=== PATIENT | female | born 1955 | race Caucasian/White ===

== ENCOUNTER 2016-12-16 07:18 | Emergency (ER) | payer OTHER ==
[2016-12-16 07:37] VITALS: BP 116/63
--- NOTE | 2016-12-16 08:04 | UC ---
Throat Pain/Nasal Rigo HPI - HPI Summary HPI Summary: C/O [address], PAIN WITH SWALLOWING, EARS FEELING PLUGGED AND ACHINESS. CO- WORKERS HAVE STREP. SHE DENIES ANY FEVER, N/V/D, COUGH OTR CONGESTION. - History of Current Complaint Chief Complaint: UCRespiratory Stated Complaint: SORE THROAT Time Seen by Provider: 12/16/16 07:55 Hx Obtained From: Patient Hx Last Menstrual Period: post menopausal Onset/Duration: Gradual Onset, Lasting Weeks, Still Present Severity: Moderate Pain Intensity: 7 Pain Scale Used: 0-10 Numeric Cough: None Associated Signs & Symptoms: Negative: Dysphagia, FB Sensation, Drooling, Wheezing, Hoarseness, Sinus Discomfort, Nasal Discharge, Fever, Vomiting, Rash - Allergies/Home Medications Allergies/Adverse Reactions: Allergies Allergy/AdvReac Type Severity Reaction Status Date / Time No Known Allergies Allergy Verified 10/13/14 13:20 Home Medications: Home Medications [id number]-[id number] [Nyquil Severe Cold/Flu 5-6.25-10-325 mg/15Ml] 1 liq PO 12/16/16 [History] PMH/Surg Hx/FS Hx/Imm Hx - Additional Past Medical History Additional PMH: INSOMNIA Endocrine History Of: Denies: Diabetes, Thyroid Disease Cardiovascular History Of: Denies: Cardiac Disorders, Hypertension, Myocardial Infarction Respiratory History Of: Denies: COPD, Asthma GI/ History Of: Denies: Ulcer - Surgical History Surgical History: Yes Surgery Procedure, Year, and Place: TONSILLECTOMY. tubal ligation - Family History Known Family History: Negative: Hypertension, Diabetes - Social History Alcohol Use: None Substance Use Type: None Smoking Status (MU): Never Smoked Tobacco Review of Systems Constitutional: Negative ENT: Sore Throat, Ear Ache Respiratory: Negative Cardiovascular: Negative Gastrointestinal: Negative Musculoskeletal: Myalgia All Other Systems Reviewed And Are Negative: Yes Physical Exam Triage Information Reviewed: Yes Appearance: Well-Appearing, No Pain Distress, Well-Nourished Vital Signs: Initial Vital Signs Temp 98.5 F 12/16/16 07:30 Pulse 59 12/16/16 07:30 Resp 16 12/16/16 07:30 BP 116/63 12/16/16 07:30 Pulse Ox 97 12/16/16 07:30 Vital Signs Reviewed: Yes Eyes: Positive: Conjunctiva Clear ENT: Positive: Hearing grossly normal, Pharynx normal, TMs normal, Other: - NO TONSILS. Negative: Trismus, Muffled/hoarse voice Neck: Positive: Supple, Nontender, No Lymphadenopathy Respiratory Exam: Normal Cardiovascular Exam: Normal Abdomen Description: Positive: Soft Musculoskeletal: Positive: No Edema Neurological: Positive: Alert Psychological: Positive: Age Appropriate Behavior Skin: Negative: rashes Throat Pain/Nasal Course/Dx - Differential Dx/Diagnosis Provider Diagnoses: ACUTE PHARYNGITIS Discharge - Discharge Plan Condition: Stable Disposition: HOME Prescriptions: predniSONE TAB* [Deltasone TAB*] 40 mg PO DAILY #10 tab Patient Education Materials: Pharyngitis (ED) Referrals: Vijaya Sabillon MD [Primary Care Provider] - If Needed Additional Instructions: NO SIGN OF STREP ON EXAM TODAY. TRY PREDNISONE TO DECREASE INFLAMMATION. USE OTC IBUPROFEN FOR DISCOMFORT. REST, HYDRATE AND SEEK FOLLOW-UP WITH YOUR PCP IF YOU ARE NOT IMPROVING OVER THE NEXT WEEK OR SO.
== END 2016-12-16 08:19 | disposition home or self-care (01) ==
LOC: UCEAST 07:18
DX: J02.9 Acute pharyngitis, unspecified (principal); R09.81 Nasal congestion
CPT/HCPCS: 99212; G0463

== ENCOUNTER 2017-03-13 07:03 | Day surgery (SDC) | payer OTHER ==
--- NOTE | 2017-03-02 16:26 | HP ---
CC: Dr. Co[facility]; Dr. Vijaya Sabillon* PREOPERATIVE HISTORY AND PHYSICAL: DATE OF ADMISSION: This patient is scheduled for same-day surgery admission by Dr. Cooley on 03/13/17. DATE OF PREOPERATIVE HISTORY AND PHYSICAL EXAMINATION: 03/02/17. ATTENDING SURGEON: Dr. yNdia Cooley* (dictated by Vianney Pruitt NP). CHIEF COMPLAINT: Left breast cancer. HISTORY OF PRESENT ILLNESS: The patient is a 61-year-old female recently evaluated by Dr. Cooley for a new finding of left breast cancer. The patient found the lump approximately 4 weeks ago and was doing self-breast exam because she had just learned that her [id number] was diagnosed with breast cancer. She denies any changes in the left breast lump other than an achiness since she found it. She sought medical attention and was sent for mammogram and ultrasound, which identified a suspicious mass in the left breast outer inferior aspect. Dr. Cooley sent her for fine needle aspiration, which revealed ductal adenocarcinoma, ER positive, VA and HER-2 negative. Age of menarche was 18, age of first delivery 28, and menopause around age 51. She was on control pills for approximately 5 years around age 32. She has a paternal aunt, who had breast cancer diagnosed when she was elderly. No other family history of breast cancer. No family history of ovarian cancer. The patient did not breastfeed; she has never had radiation to the chest. Dr. Cooley has examined the patient and reviewed the findings with her and has commended left breast lumpectomy and sentinel lymph node biopsy as a same-day surgery procedure. Dr. Cooley discussed the nature of the surgical procedure, the rationale for the procedure, the relevant risks and benefits, and today I have reviewed the typical postoperative care and recovery. The patient also has an upcoming appointment with Dr. María Aviles from Oncology. The patient has had a chance to ask questions and stated that she understands the information and is satisfied with the answers given to her questions. She will sign surgical consent on the day of surgery. PAST MEDICAL HISTORY: Significant for anxiety and depression. PAST SURGICAL HISTORY: Laparoscopy for ovarian cyst many years ago; tonsillectomy many years ago. OB HISTORY: 3, para 2, abortions 1. She is up-to-date with breast exam , mammogram, pelvic, and Pap smear, and has been postmenopausal for over 10 years. MEDICATIONS: 1. Buspirone 10 mg 1 tablet daily in the morning and 2 tablets daily at bedtime. 2. Ambien 10 mg p.o. at bedtime as needed. 3. Xanax 0.25 mg 1 tablet up to 3 times daily as needed for anxiety. ALLERGIES: No known drug allergies. No latex or food allergies. FAMILY HISTORY: Paternal aunt diagnosed with breast cancer when she was elderly. No other family history of breast or ovarian cancer. No known bleeding tendencies, clotting disorders, or anesthesia complications in the family. SOCIAL HISTORY: She is and has never been a smoker. She denies the use of alcohol or other substances. REVIEW OF SYSTEMS: Constitutional: No recent illnesses. No change in weight. Cardiovascular: No chest pain, pressure, palpitations, or shortness of breath. Respiratory: No chronic cough. Gastrointestinal: No conditions or complaints. Genitourinary: No dysuria or history of kidney stones. Musculoskeletal: No complaints. Psychological: History of anxiety and depression. Hematologic: No bleeding tendencies. She has never received blood transfusion. She denies any history of deep vein thrombosis or pulmonary embolism and she denies any previous anesthesia complications. PHYSICAL EXAMINATION GENERAL SURVEY: The patient is a 61-year-old female, well-developed, well- nourished, in no acute distress. VITAL SIGNS: Height 63 inches, weight 119 pounds, body mass index 21. Blood pressure 116/78, pulse 74 and regular, respiratory rate 16, temperature 99 tympanic. HEENT: Benign. NECK: Supple. No cervical lymphadenopathy. No thyromegaly. No supraclavicular lymphadenopathy. BACK: No CVA tenderness. LUNGS: Breath sounds bilaterally clear and equal. BREAST EXAM: Performed with the patient in supine position and sitting position. Breasts are symmetrical. Left breast with ecchymosis in the inferior outer aspect consistent with the biopsy site, no infection, palpation reveals a mass at the site that is firm and round and semi-mobile located at the 4 o' clock position 3 cm from the nipple. No masses noted in the right breast. Nipples are everted. No nipple discharge. On inspection of both axillae, there is no palpable axillary lymphadenopathy. HEART: Regular rate and rhythm. No murmurs or rubs appreciated. ABDOMEN: Soft and nondistended, nontender throughout. PELVIC: Deferred. RECTAL: Deferred. EXTREMITIES: Warm without edema or skin ulcerations. NEUROLOGIC: Alert and oriented x3. Steady gait. SKIN: Warm, dry, intact. IMPRESSION: Left breast cancer. PLAN: Same-day surgery admission to Dr. Cooley's service on 03/13/17, for left breast lumpectomy and sentinel lymph node biopsy. IVANNEY PRUITT, STRATEGIC INSIGHTS LEAD [id number]/CPS #: [id number] [facility] MEDICAL CENTERLeoncio
[~2017-03-13 07:03] MED LIST: Buffered Lidocaine 0.9% SYRIN* 5 ML/SYR SYRINGE INTRADERM ONE; Famotidine IV* 10 MG/ML 2 ML (20 mg) IV ONE
[2017-03-13] MEDS ORDERED: Buffered Lidocaine 0.9% SYRIN* 5 ML/SYR SYRINGE ONE (07:15)
[2017-03-13] MEDS ORDERED: Lidocaine 2.5%/Prilocain 2.5%* 5 GM TUBE ONE (07:15)
[2017-03-13] MEDS ORDERED: Famotidine IV* 10 MG/ML 2 ML (20 mg) ONE (08:30)
[2017-03-13] MEDS ORDERED: KETAMINE HCL* 50 MG/ML 10 ML VIAL ONE (09:17)
[2017-03-13] MEDS ORDERED: Midazolam* 1 MG/ML 5 ML VIAL (5 MG) ONE (09:17)
[2017-03-13] MEDS ORDERED: fentaNYL* 50 MCG/ML 2 ML VIAL (100 MCG VIAL) ONE ×2 (09:17→11:11)
[2017-03-13] MEDS ORDERED: oxyCODONE/Acetamin 5/325 MG* TAB PO PRN ×2 (09:43→12:32)
[2017-03-13] MEDS ORDERED: Morphine INJ* 2 MG/ML 1 ML SYRINGE IV PRN (09:43)
[2017-03-13] MEDS ORDERED: fentaNYL* 50 MCG/ML 2 ML VIAL (100 MCG VIAL) IV PRN (09:43)
[2017-03-13] MEDS ORDERED: PROCHLORPERAZINE INJ 5 MG/ML 2 ML VIAL IV PRN (09:43)
[2017-03-13] MEDS ORDERED: Scopolamine 1.5 mg* PATCH TRANSDERM PRN (09:43)
--- NOTE | 2017-03-13 10:06 | RAD ---
HISTORY: Breast cancer. Lymphoscintigraphy of the breast for the purposes of sentinel node identification. COMPARISONS: Ultrasound dated February 09, 2017 TECHNIQUE: Previous imaging was reviewed. The procedure was explained to the patient who indicated that she understood. Written and verbal informed consent was obtained, with an opportunity to ask and answer questions. The breast was marked. A timeout was performed. The patient was prepped and draped in the usual sterile fashion. Technetium 99m sulfur colloid was administered in a subdermal fashion in 4 divided aliquots in a 180 degree arc along the areolar margin of the left breast, centered on the position of the primary breast lesion. Cine and planar imaging was performed. The first appearing axillary node was identified with the overlying skin marked. DOSE: Technetium 99m sulfur colloid, 0.312 millicuries, injected at 9:34 AM on March 13, 2017 FINDINGS: Uptake is noted within a left axillary lymph node. The site of uptake is marked on the overlying skin. OTHER: None IMPRESSION: TECHNICALLY SUCCESSFUL, UNCOMPLICATED, LYMPHOSCINTIGRAPHY OF THE LEFT BREAST FOR THE PURPOSES OF SENTINEL NODE LOCALIZATION.
[2017-03-13] MEDS ORDERED: Lidocaine 1% INJ* 10 MG/ML 30 ML SDV ONE (10:18)
[2017-03-13] MEDS ORDERED: Bupivacaine 0.5% W/EPI SDV* 10 ML VIAL INJ ONE (10:18)
[2017-03-13] MEDS ORDERED: ceFAZolin 2 GM PREMIX(*) 2 GM/50 ML BAG IVPB ONE (10:31)
--- NOTE | 2017-03-13 11:47 | RAD ---
HISTORY: Specimen radiograph of the left breast after lumpectomy COMPARISONS: Mammogram dated February 09, 2017, ultrasound dated February 09, 2017 VIEWS: 2 specimen radiographs are submitted at approximately 11:27 AM on March 05, 2017 FINDINGS: 1 specimen radiograph the straight a nodular density that may correspond to the nodule noted on sonography. This was not well visualized on previous mammography. The second specimen radiograph demonstrates microcalcifications IMPRESSION: SPECIMEN RADIOGRAPHS DESCRIBED ABOVE. FINDINGS WERE DISCUSSED WITH DR. JIMENEZ AT APPROXIMATELY 11 30 A.M. ON MARCH 13, 2017
[2017-03-13] MEDS ORDERED: Propofol* 10 MG/ML 20 ML BTL IV PUSH ONE (12:21)
[2017-03-13] MEDS ORDERED: Dexamethasone IV* 4 MG/ML 1 ML (4 MG) ONE (12:21)
[2017-03-13] MEDS ORDERED: Lidocaine 2% PF * 5 ML VIAL ONE (12:21)
[2017-03-13] MEDS ORDERED: Ketorolac INJ* 30 MG/ML 1 ML VIAL ONE (12:21)
[2017-03-13] MEDS ORDERED: PROCHLORPERAZINE INJ 5 MG/ML 2 ML VIAL ONE (12:21)
[2017-03-13] MEDS ORDERED: Ondansetron INJ* 2 MG/ML VIAL ONE (12:21)
--- NOTE | 2017-03-13 12:42 | PN ---
Progress Note - Progress Note Date of Service: 03/13/17 Note: Brief Operative Note: Pre-op: Left breast cancer Post-op: The same Procedure: Left breast lumpectomy with sentinal lymph node biopsy Surgeon: Dr. Cooley It Project Manager: Steven Cintron EBL: Minimal Fluids: LR 1000 Drains: None Catheters: None Specimen: Left breast mass, Left breast additional mass, sentinal lymph nodw # 1 and #2 Findings: See dictated op note
[2017-03-13 12:59] VITALS: BP 128/76
--- NOTE | 2017-03-14 11:59 | OP ---
CC: Dr. Vijaya Sabillon * DATE OF OPERATION: 03/13/17 - [facility] DATE OF : 59 SURGEON: Nydia Cooley MD MANAGER ELECTRONIC: CANDY Stanley ANESTHESIOLOGIST: Niranjan Culp MD ANESTHESIA: MAC PRE-OP DIAGNOSIS: Left breast cancer. POST-OP DIAGNOSIS: Left breast cancer. OPERATIVE PROCEDURE: Left breast lumpectomy and sentinel node biopsy. INDICATIONS: Ms. Carbajal is a 61-year-old woman recently diagnosed with breast cancer, who was prepared for surgery and the lump was palpable but she preferred sentinel node biopsy, so she underwent sentinel node localization on the morning of the surgery. DESCRIPTION OF PROCEDURE: She was then brought to the operating room, placed on the OR table in supine position and given IV sedation. The left breast and axilla were prepped and draped in the usual sterile fashion. Attention was turned to the breast first. Here, palpation revealed a thickened area in the upper outer quadrant and more dense area inferiorly. The decision was made to make the incision towards the upper outer quadrant and excise the thickened area as well as the more dense area inferiorly. So an incision was made and subcutaneous tissue was divided with electrocautery and to completely excise the thickened area superiorly, this was marked in the usual fashion and handed off as a specimen. It was noted that at the inferior aspect of this was very dense area, so additional tissue was taken from inferiorly as planned. This contained a firm nodule and was marked in the usual fashion and handed off as a second specimen identified this being adjacent to the first and inferior to it. These were sent to Radiology where it was ascertained that the superior specimen contained microcalcifications and the inferior specimen contained a nodule. Meanwhile, hemostasis was assured with electrocautery. Once this was adequate, clips were placed in the cavity to emily its confines and then closure was accomplished after instilling some additional local anesthetic. Closure was done with 3-0 Polysorb in the subcutaneous layer and the skin was closed with 4-0 Surgipro in a subcuticular fashion. Attention was then turned to the axilla where the location of the sentinel node was identified. After infiltrating with local anesthetic, a curvilinear incision was made and again the navigator was used to locate the sentinel node. The first structure that came into the field was a small node in the inferior axilla. This was grasped and dissected from surrounding tissue using sharp and blunt dissection. Clips were used to control the vessels that approached this gland. It was noted to have in situ counts of 700 and ex vivo counts of 500, so search was made for a second sentinel node. This was found more anteriorly and again noted to be a small node that was dissected free from surrounding tissue using blunt and sharp dissection and clips to control vessels. Its in situ counts were 4400 and ex vivo counts 4200. The axillary bed counts were 179. The wound was irrigated with saline and hemostasis was assured and then closure was accomplished with 3-0 Polysorb in a subcutaneous layer and the skin was closed with 4-0 Surgipro in a subcuticular fashion. Steri-Strips and a dry sterile dressing were applied to both incisions. All sponge and instrument counts were correct. The patient tolerated the procedure well and was transferred to Recovery in a stable condition. [id number]/[facility] #: [id number] MTDD
[2017-03-16] MEDS ORDERED: Scopolomine PATCH Remove* 1 NOTE MISC PATCH OFF ONE (09:44)
== END 2017-03-13 13:33 | disposition home or self-care (01) ==
LOC: OR 07:03
PROVIDERS: ATTEND Surgery
DX: C50.412 Malignant neoplasm of upper-outer quadrant of left female breast (principal); F41.8 Other specified anxiety disorders
CPT/HCPCS: 78195; 88271; 88307; 88341; 88342; 88360; A9270-GY; A9541; G0206-LT; J0690; J0780; J1100; J1885; J2001; J2250; J2405; J2704; J3010

== ENCOUNTER 2017-07-25 16:26 | Emergency (ER) | payer OTHER ==
[2017-07-25] MEDS ORDERED: Aspirin Low Dose CHEW TAB* 81 MG PO ONE (16:43)
[2017-07-25 17:08] LABS: Hematocrit 36 % (35-47); Hemoglobin 12.3 g/dl (12.0-16.0); Mean Corpuscular HGB Conc 34 g/dl (31-36); Mean Corpuscular Hemoglobin 29 pg (27-31); Mean Corpuscular Volume 87 fL (80-97); Mean Platelet Volume 8 um3 (7.4-10.4); Red Cell Distribution Width 16 % (10.5-15); White Blood Count 10.3 10^3/ul (3.5-10.8)
[2017-07-25 17:24] LABS: Albumin 3.9 g/dL (3.2-5.2); Calcium 9.2 mg/dL (8.6-10.3); EGFR African American 131.6 (>60); EGFR Non-African American 102.3 (>60); Globulin 2.8 g/dL (2-4); Potassium 3.9 mmol/L (3.5-5.0); Total Bilirubin 0.4 mg/dL (0.2-1.0); Total Protein 6.7 g/dL (6.4-8.9)
[2017-07-25 17:27] LABS: Troponin I 0.01 ng/mL (<0.04)
--- NOTE | 2017-07-25 17:42 | RAD ---
Indication: LEFT breast carcinoma; currently receiving oncology therapy. Shortness of breath. LEFT side chest pain radiating to the back. Comparison: July 02, [address] Technique: Upright AP 1654 hours Report: Mild prominence of the interstitial markings. No focal pulmonary lesion, pleural effusion, pneumothorax. Upper normal heart size. Unremarkable central pulmonary vasculature and mediastinal contours. LEFT breast and axillary surgical clips. No LEFT rib fracture evident. Incidental note of calcific tendinopathy of the LEFT rotator cuff. IMPRESSION: No evidence for acute intrathoracic disease.
[2017-07-25 17:59] LABS: TSH (Thyroid Stimulating Horm) 0.08 mcIU/mL (0.34-5.60)
[2017-07-25 18:00] LABS: Urine Bilirubin Negative (Negative); Urine Glucose Negative (Negative); Urine Nitrite Negative (Negative)
[2017-07-25] MEDS ORDERED: Iohexol 350* (CONTRAST) 500 ML MDV IV ONE (18:30)
--- NOTE | 2017-07-25 19:33 | RAD ---
INDICATION: Shortness of breath and chest pain. LEFT chest wall pain increases with inspiration. COMPARISON: July 02, [address] thorax. TECHNIQUE: Multidetector CT images were obtained from the lung apices to the upper abdomen with 61 mL Omnipaque 350 IV contrast. Pulmonary angiogram protocol. Multiplanar reformation including with maximum intensity projection. REPORT: Mild LEFT basilar atelectasis with volume loss resulting from cardiomegaly. No suspicious focal pulmonary lesions. Negative for pneumothorax. Surgical clips at the LEFT axilla. Negative for thoracic lymphadenopathy. Cardiomegaly without significant change. Negative for pericardial effusion. Unremarkable thoracic aorta. No filling defects are identified from the main to the subsegmental pulmonary arteries to indicate presence of a pulmonary embolism. Unremarkable Limited images through the upper abdomen. Partially visualized LEFT breast seroma or hematoma measuring up to 6.5 cm AP by 9.1 cm transverse is unchanged. Negative for rib or other thoracic fracture. 0.7 cm sclerotic lesion at the RIGHT para midline T3 vertebral body is unchanged compared with the July 02, 2017 exam. No additional suspicious focal thoracic osseous lesions evident. IMPRESSION: 1. Mild LEFT basilar atelectasis with cardiomegaly activity to volume loss. 2. No evidence for pulmonary embolism. 3. Unchanged probable large postoperative seroma or hematoma at the LEFT breast. 4. Solitary 0.7 cm indeterminate sclerotic lesion at the T3 vertebral body concerning for a potential metastasis. Consider follow-up bone scan for further assessment.
[2017-07-25] MEDS ORDERED: Ondansetron INJ* 2 MG/ML VIAL IV ONE (22:06)
[2017-07-25] MEDS ORDERED: fentaNYL* 50 MCG/ML 2 ML VIAL (100 MCG VIAL) IV SLOW PU ONE (22:06)
[2017-07-25] MEDS ORDERED: oxyCODONE/Acetamin 5/325 MG* TAB PO PRN (23:00)
[2017-07-25] MEDS ORDERED: oxyCODONE/Acetamin 5/325 MG* TAB ONE (23:45)
[2017-07-26 00:03] VITALS: BP 110/59
--- NOTE | 2017-07-26 16:43 | ED ---
Bruna Clarke Alfonso, scribed for Jimmy Trotter MD on 07/25/17 at 1702 . HPI Chest Pain - HPI Summary HPI Summary: This patient is a 61 year old F presenting to [facility] accompanied by with a chief complaint of pressured mid sternal CP since 1400 today. The CP radiates to her back. The CP began while baking cookies with her grandchildren. She has had a similar pain for a few minutes in the past, but not in a long time and this long. The patient rates the pain 7/10 in severity. Symptoms aggravated by deep breaths. Symptoms alleviated by nothing. Patient reports dyspnea. Patient denies N/V, diaphoresis, dizziness, and near syncope. - History of Current Complaint Chief Complaint: EDChestPainROMI Time Seen by Provider: 07/25/17 16:43 Hx Obtained From: Patient Hx Last Menstrual Period: post menopausal Onset/Duration: Started Hours Ago, Still Present Timing: Constant Current Severity: Moderate Pain Intensity: 7 Pain Scale Used: 0-10 Numeric Chest Pain Location: Mid Sternal Character: Pressure/Squeezing Aggravating Factor(s): Deep Breaths Alleviating Factor(s): Nothing Associated Signs and Symptoms: Positive: Other: - dyspnea. Patient denies N/V, diaphoresis, dizziness, and near syncope. - Allergy/Home Medications Allergies/Adverse Reactions: Allergies Allergy/AdvReac Type Severity Reaction Status Date / Time No Known Allergies Allergy Verified 03/13/17 07:58 PMH/Surg Hx/FS Hx/Imm Hx Endocrine/Hematology History: Denies: Hx Diabetes, Hx Thyroid Disease Cardiovascular History: Reports: Hx Angina Denies: Hx Coronary Artery Disease, Hx Hypercholesterolemia, Hx Hypertension , Hx Myocardial Infarction, Hx Valvular Heart Disease Respiratory History: Denies: Hx Asthma, Hx Chronic Obstructive Pulmonary Disease (COPD) GI History: Denies: Hx Ulcer Musculoskeletal History: Denies: Hx Osteoporosis Sensory History: Denies: Hx Contacts or Glasses, Hx Hearing Aid Opthamlomology History: Denies: Hx Contacts or Glasses Psychiatric History: Reports: Hx Anxiety - recently, Hx Depression - in past - Cancer History Cancer Type, Location and Year: Breast cancer Hx Chemotherapy: No Hx Radiation Therapy: Yes - Surgical History Surgery Procedure, Year, and Place: TONSILLECTOMY. tubal ligation. laparoscopic surgery for cyst on ovaries 30 years ago. Lumpectomy Hx Anesthesia Reactions: No Infectious Disease History: No Infectious Disease History: Denies: Hx Clostridium Difficile, Hx Hepatitis, Hx Human Immunodeficiency Virus (HIV), Hx of Known/Suspected MRSA, Hx Shingles, Hx Tuberculosis, History Other Infectious Disease, Traveled Outside the [place] in Last 30 Days - Family History Known Family History: Negative: Hypertension, Diabetes - Social History Alcohol Use: Occasionally Hx Substance Use: No Substance Use Type: Reports: None Hx Tobacco Use: No Smoking Status (MU): Never Smoked Tobacco Review of Systems Negative: Skin Diaphoresis Positive: Chest Pain Positive: Other - Dyspnea Negative: Vomiting, Nausea Neurological: Other - Negative dizziness and near syncope All Other Systems Reviewed And Are Negative: Yes Physical Exam - Summary Physical Exam Summary: VITAL SIGNS: Reviewed. GENERAL: Patient is a well-developed and nourished female who is lying comfortable in the stretcher. Patient is not in any acute respiratory distress. HEAD AND FACE: No signs of trauma. No ecchymosis, hematomas or skull depressions. No sinus tenderness. EYES: PERRLA, EOMI x 2, No injected conjunctiva, no nystagmus. EARS: Hearing grossly intact. Ear canals and tympanic membranes are within normal limits. MOUTH: Oropharynx within normal limits. NECK: Supple, trachea is midline, no adenopathy, no JVD, no carotid bruit, no c- spine tenderness, neck with full ROM. CHEST: Symmetric, no tenderness at palpation LUNGS: Clear to auscultation bilaterally. No wheezing or crackles. CVS: Regular rate and rhythm, S1 and S2 present, no murmurs or gallops appreciated. ABDOMEN: Soft, non-tender. No signs of distention. No rebound no guarding, and no masses palpated. Bowel sounds are normal. EXTREMITIES: FROM in all major joints, no edema, no cyanosis or clubbing. NEURO: Alert and oriented x 3. No acute neurological deficits. Speech is normal and follows commands. SKIN: Dry and warm Triage Information Reviewed: Yes Vital Signs On Initial Exam: Initial Vitals Temp Pulse Resp BP Pulse Ox 98.4 F 88 20 162/80 98 07/25/17 16:30 07/25/17 16:30 07/25/17 16:30 07/25/17 16:30 07/25/17 16:30 Vital Signs Reviewed: Yes - Matt Coma Scale Coma Scale Total: 15 Diagnostics - Vital Signs Vital Signs Temp Pulse Resp BP Pulse Ox 07/25/17 16:52 79 20 99 07/25/17 16:30 98.4 F 88 20 162/80 98 - Laboratory Result Diagrams: 07/25/17 16:49 07/25/17 16:49 Lab Statement: Any lab studies that have been ordered have been reviewed, and results considered in the medical decision making process. - Radiology CXR Radiology Interpretation Completed By: Radiologist - No evidence for acute intrathoracic disease. ED physician has reviewed this radiology report and agrees. - CT CTA Chest CT Interpretation Completed By: Radiologist - Pending official interpretation from radiologist. See Artspace. - EKG 1646 Cardiac Rate: NL EKG Rhythm: Sinus Rhythm - 76 BPM EKG Interpretation: ST depressions in V4-V6. Q-waves in III and aVF. Chest Pain Course/Dx - Course Assessment/Plan: This patient is a 61 year old F presenting to [facility] accompanied by with a chief complaint of pressured mid sternal CP since 1400 today. The CP radiates to her back. The CP began while baking cookies with her grandchildren. She has had a similar pain for a few minutes in the past, but not in a long time and this long. The patient rates the pain 7/10 in severity. Symptoms aggravated by deep breaths. Symptoms alleviated by nothing. Patient reports dyspnea. Patient denies N/V, diaphoresis, dizziness, and near syncope. An EKG reveals Sinus rhythm at [address] depressions in V4-V6. Q- waves in III and aVF. CXR reveals, per radiologist, No evidence for acute intrathoracic disease. ED physician has reviewed this radiology report and agrees. Test results with no significant abnormalities except for increased D- Dimer. D-Dimer was preformed since patient has history of cancer. CTA Chest Pending official interpretation from radiologist. See Artspace. This patient will be signed out at shift change to Dr. Howard to follow CTA and disposition of patient. The patient is hemodynamically stable, alert and oriented x3. - Diagnoses Provider Diagnoses: Chest pain Discharge - Discharge Plan Condition: Stable Disposition: OTHER Discharge Disposition Comment: Patient is signed out to Dr. Howard, pending disposition, awaiting CTA Referrals: Vijaya Sabillon MD [Primary Care Provider] - The documentation as recorded by the scribBruna chacko Alfonso accurately reflects the service I personally performed and the decisions made by me, Jimmy Trotter MD.
--- NOTE | 2017-07-28 05:29 | ED ---
Todd Clarke Thomas, scribed for Cely Howard MD on 07/25/17 at 2016 . Progress - Progress Note Progress Note: The patient is a sign out from the previous ED attening pending CTA Chest, awaiting disposition. The patient describes the pain as a substernal chest pain going through her back. It is worse with movement and deep breaths. CTA Chest. Interpreted by radiologist. Impression: 1. Mild LEFT basilar atelectasis with cardiomegaly activity to volume loss. 2. No evidence for pulmonary embolism. 3. Unchanged probable large postoperative seroma or hematoma at the LEFT breast. 4. Solitary 0.7 cm indeterminate sclerotic lesion at the T3 vertebral body concerning for a potential metastasis. Consider follow- up bone scan for further assessment. Dr. Howard has reviewed this report. I did review with the patient and her the CT scan results, which includes a collection behind the left breast 0.7 cm at T3. The patient and her were advised to follow up with oncology and breast surgery next week to discuss the problem with him. The pain is most likely musculoskeletal. The patient will be discharged home with Percocet for the pain and also to follow up with her primary medical doctor. Course/Dx - Diagnoses Provider Diagnoses: Atypical chest pain, Chest wall pain The documentation as recorded by the Todd edwards Thomas accurately reflects the service I personally performed and the decisions made by Anita huff Abdul, MD.
== END 2017-07-26 00:01 ==
LOC: ED 16:26
DX: R07.89 Other chest pain (principal); R06.00 Dyspnea, unspecified; Z86.79 Personal history of other diseases of the circulatory system
CPT/HCPCS: 36415; 71010; 71275; 80053; 81003; 82550; 82553; 83880; 84443; 84484; 85025; 85379; 85730; 93005; 96374; 96375; 99285; A9270-GY; J2405; J3010; Q9967

== ENCOUNTER 2017-08-19 15:03 | Inpatient (IN) | payer OTHER ==
[2017-08-19] MEDS ORDERED: NS 0.9% 1000 ML* 1,000 ML IV ONE (15:16)
[2017-08-19] MEDS ORDERED: ALPRAZolam TAB* 0.25 MG PO PRN (15:29)
[2017-08-19] MEDS ORDERED: Piperacillin/Tazobac ADVAN(*) 3.375 GM in NS 0.9% 100 ML* 100 ML IVPB ONE (16:00)
[2017-08-19] MEDS ORDERED: Zosyn per Pharmacy* NOTE FOLLOW UP SCH (16:00)
[2017-08-19] MEDS: NS 0.9% 1000 ML* 1,000 ML IV SCH (16:42)
[2017-08-19 17:21] LABS: INR 1.19 (0.77-1.02)
[2017-08-19] MEDS: busPIRone TAB* 10 MG PO SCH (23:10)
[2017-08-19] MEDS: Zolpidem TAB* 10 MG PO SCH (23:10)
[2017-08-19] MEDS: ZOSYN 3.375 GM Q8H per EXTENDED INFUSION IVPB SCH ×2 (23:11)
[2017-08-19] MEDS ORDERED: Acetaminophen TAB* 325 MG PO PRN (23:58)
[2017-08-20] MEDS: ZOSYN 3.375 GM Q8H per EXTENDED INFUSION IVPB SCH ×6 (05:36→21:09)
[2017-08-20 05:51] LABS: ABS Basophils 0 10^3/ul (0-0.2); ABS Eosinophils 0 10^3/ul (0-0.6); ABS Lymphocytes 0.9 10^3/ul (1.0-4.8); ABS Monocytes 0.8 10^3/ul (0-0.8); ABS Neutrophils 7.3 10^3/ul (1.5-7.7); ABS Nucleated RBC 0 10^3/ul; Eosinophil % 0.4 % (0-6); Hematocrit 32 % (35-47); Hemoglobin 10.5 g/dl (12.0-16.0); Lymphocyte % 10.1 % (25-47); Mean Corpuscular HGB Conc 33 g/dl (31-36); Mean Corpuscular Hemoglobin 28 pg (27-31); Mean Corpuscular Volume 85 fL (80-97); Mean Platelet Volume 8 um3 (7.4-10.4); Nucleated Red Blood Cells % 0; Platelet Count 254 10^3/ul (150-450); Red Blood Count 3.71 10^6/ul (4.0-5.4); Red Cell Distribution Width 15 % (10.5-15)
[2017-08-20 06:03] LABS: EGFR Non-African American 146.4 (>60)
[2017-08-20] MEDS: Heparin VIAL(*) 5000 UNITS/ML VIAL (FIVE THOUSAND) SUBCUT SCH ×2 (07:04→18:04)
[2017-08-20] MEDS: busPIRone TAB* 10 MG PO SCH ×3 (08:01→21:09)
--- NOTE | 2017-08-20 08:10 | PN ---
Progress Note - Progress Note Date of Service: 08/20/17 SOAP: Subjective: feels a little better with hydration this am. still very weak and does not really want to get out of bed. anxious about this am. coughing with talking or deep breaths. +night sweats. +anorexia and nausea but no vomiting. Objective: Vital Signs Temp Pulse Resp BP Pulse Ox 98.3 F 82 18 94/60 97 08/20/17 03:25 08/20/17 03:25 08/20/17 03:25 08/20/17 03:25 08/20/17 03:25 current HR ~110 tired appearing perr eomi op moist dec bs 1/4 way up on left tachy soft nt +Bs no le edema A+Ox 3, nonfocal, neck supple, no photophobia Laboratory Results - last 24 hr 08/19/17 08/19/17 08/19/17 17:05 17:05 17:05 WBC RBC Hgb Hct MCV MCH MCHC RDW Plt Count MPV Neut % (Auto) Lymph % (Auto) [place] % (Auto) Eos % (Auto) Baso % (Auto) Absolute Neuts (auto) Absolute Lymphs (auto) Absolute Monos (auto) Absolute Eos (auto) Absolute Basos (auto) Absolute Nucleated RBC Nucleated RBC % ESR 109 H INR (Anticoag Therapy) 1.19 H Sodium Potassium Chloride Carbon Dioxide Anion Gap BUN Creatinine Est GFR ( Amer) Est GFR (Non-Af Amer) BUN/Creatinine Ratio Glucose Calcium Total Bilirubin AST ALT Alkaline Phosphatase C-Reactive Protein 218.74 H Total Protein Albumin Globulin Albumin/Globulin Ratio 08/20/17 08/20/17 05:29 05:29 WBC 9.0 RBC 3.71 L Hgb 10.5 L Hct 32 L MCV 85 MCH 28 MCHC 33 RDW 15 Plt Count 254 MPV 8 Neut % (Auto) 80.5 Lymph % (Auto) 10.1 L [place] % (Auto) 8.7 Eos % (Auto) 0.4 Baso % (Auto) 0.3 Absolute Neuts (auto) 7.3 Absolute Lymphs (auto) 0.9 L Absolute Monos (auto) 0.8 Absolute Eos (auto) 0 Absolute Basos (auto) 0 Absolute Nucleated RBC 0 Nucleated RBC % 0 ESR INR (Anticoag Therapy) Sodium 135 Potassium 3.6 Chloride 103 Carbon Dioxide 25 Anion Gap 7 BUN 11 Creatinine 0.44 L Est GFR ( Amer) 188.2 Est GFR (Non-Af Amer) 146.4 BUN/Creatinine Ratio 25.0 H Glucose 111 H Calcium 9.2 Total Bilirubin 0.50 AST 14 ALT 13 Alkaline Phosphatase 94 C-Reactive Protein Total Protein 6.5 Albumin 3.1 L Globulin 3.4 Albumin/Globulin Ratio 0.9 L Acetaminophen (Tylenol Tab*) 650 mg PO Q4H PRN PRN Reason: PAIN/FEVER Last Admin: 08/20/17 00:16 Dose: 650 mg Alprazolam (Xanax Tab*) 0.25 mg PO Q6H PRN PRN Reason: ANXIETY Buspirone HCl (Buspar Tab*) 10 mg PO BID REPLACED BY [facility] Last Admin: 08/19/17 23:10 Dose: 10 mg Heparin Sodium (Porcine) (Heparin Vial(*)) 5,000 units SUBCUT Q8H REPLACED BY [facility] Last Admin: 08/20/17 07:04 Dose: Not Given Sodium Chloride (Ns 0.9% 1000 Ml*) 1,000 mls @ 75 mls/hr IV PER RATE REPLACED BY [facility] Last Admin: 08/19/17 16:42 Dose: 75 mls/hr Piperacillin Sod/Tazobactam (Sod 3.375 gm/ Sodium Chloride) 100 mls @ 25 mls/ hr IVPB Q8H REPLACED BY [facility] Last Admin: 08/20/17 05:36 Dose: 25 mls/hr Morphine Sulfate (Morphine Inj (Syringe)*) 2 mg IV Q4H PRN PRN Reason: PAIN Pharmacy Consult (Zosyn Per Pharmacy*) 1 note FOLLOW UP .ZOSYN PER PHARMACY REPLACED BY [facility] Zolpidem Tartrate (Ambien Tab*) 10 mg PO BEDTIME REPLACED BY [facility] Last Admin: 08/19/17 23:10 Dose: 10 mg Assessment: 61 yo F w triple positive BCA sp chemo and RT who has had c/o left sided pleuritic CP since 07/25. Tx w 10 dy course of abx 07/28-08/07 with some improvement, then steroids 08/09-08/15 with initial marked improvement. now with night sweats, low grade fevers, and worsening fatigue and cough with CT showing worsening pleural effusion. CRP and ESR markedly elevated. This is concerning for a parapneumonic effusion. Unfortunately surgery did not feel blind tap was safe and radiology could not do image guided thoracentesis last night in timely fashion, so having image guided thoracentesis this am. I did speak with Dr. Guerrero and we will continue current abx pending tap. Plan: -thoracentesis this am -cont zosyn -fu blood cultures -add on tsh, FT4, T3 -cont hydration -repeat ESR,Crp in am -cont tele, EKG changes likely related to stress of infection, improved now full code
[2017-08-20] MEDS ORDERED: fentaNYL* 50 MCG/ML 2 ML VIAL (100 MCG VIAL) ONE (08:18)
[2017-08-20] MEDS ORDERED: LORazepam TAB(*) 1 MG PO ONE (09:00)
--- NOTE | 2017-08-20 09:39 | RAD ---
Indication: Left pleural effusion. Inspiration and expiration views of the chest are reviewed. Comparison is made with previous exam dated July 25, 2017. Left pleural effusion is decreased since previous exam. No pneumothorax is noted. Patient is status post left thoracentesis. Right lung field is clear. IMPRESSION: No pneumothorax after left thoracentesis.
[2017-08-20] MEDS: NS 0.9% 1000 ML* 1,000 ML IV SCH (10:46)
--- NOTE | 2017-08-20 11:12 | RAD ---
Indication: Left pleural effusion. Using usual aseptic technique and lidocaine as local anesthetic left thoracentesis performed. 500 mL of serosanguineous fluid was aspirated. Patient tolerated procedure well. IMPRESSION: Status post left thoracentesis. Aspiration of 500 mL of serosanguineous fluid.
[2017-08-20] MEDS: Morphine INJ* 2 MG/ML 1 ML SYRINGE (TWO MG - NEW SYRINGE VERSION) IV PRN ×2 (11:40→18:04)
--- NOTE | 2017-08-20 15:38 | RAD ---
HISTORY: Decreased TSH COMPARISONS: March 30, 2006, March 05, 2006 TECHNIQUE: Multiple transverse and longitudinal ultrasound images were obtained of the thyroid using grayscale and color Doppler imaging. FINDINGS: Comparison to previous imaging is limited secondary to the age of study and differences in technique. ISTHMUS: The isthmus measures 0.3 cm in caliber. The isthmus is heterogeneous in echotexture. RIGHT: The right thyroid measures 5.2 x 1.8 x 2.5 cm, for a volume of 11.8 cc. In the right mid thyroid, there is a complex cystic and solid, partially calcified nodule measuring 2.8 x 1.7 x 2.1 cm. This has smooth contours, without internal vascularity or suspicious microcalcification. Accounting for differences in technique, there has been no significant change from the previous examination. Based on the sonographic pattern, this is considered a low suspicion nodule. In the right lower thyroid, there is a complex cystic and solid nodule measuring 1.4 x 1 x 1.2 cm. The margins are smooth. There is internal vascularity. Accounting for differences in technique, there has been no significant change from the previous examination. Based on the sonographic pattern, this is considered a low suspicion nodule. In the right upper thyroid, there is a homogeneously hypoechoic nodule measuring 0.5 x 0.3 x 0.4 cm. This has smooth contours. There is minimal peripheral vascularity. This is not clearly visualized on the previous examination. Based on the sonographic pattern, this is considered an intermediate suspicion nodule. LEFT: The left thyroid measures 4.9 x 1.3 x 1.3 cm, for a volume of 4.1 cc. In the left upper thyroid, there is a homogeneously isoechoic nodule measuring 0.4 x 0.3 x 0.4 cm. There is minimal peripheral vascularity. Accounting for differences in technique, there has been no significant change from the previous examination. Based on the sonographic pattern, this is considered a low suspicion nodule. In the left mid thyroid, there is a spongiform nodule measuring 1 x 0.5 x 0.8 cm. There is internal vascular. The margins are smooth. Accounting for differences in technique, there has been no significant change from the previous examination. Based on the sonographic pattern, this is considered a low suspicion nodule. In the left lower thyroid, there is a complex cystic and solid nodule measuring 1.4 x 0.8 x 0.7 cm. There is ringdown artifact suggestive of colloid. There is minimal internal vascularity. This is not clearly seen on the previous examination. Based on the sonographic pattern, this is considered a low suspicion nodule. LYMPH NODES: There is no local lymphadenopathy. VESSELS: The vessels are unremarkable. OTHER: None IMPRESSION: 1. MULTINODULAR GOITER. 2. THERE IS A 0.5 CM INTERMEDIATE SUSPICION NODULE OF THE RIGHT UPPER THYROID. THE [place] [employer] RECOMMENDS CONSIDERATION OF FINE-NEEDLE ASPIRATION OF INTERMEDIATE SUSPICION NODULES GREATER THAN OR EQUAL TO 1 CM IN SIZE. 3. THERE ARE BILATERAL LOW SUSPICION NODULES, MEASURING UP TO 2.8 CM ON THE RIGHT AND 1.4 CM ON THE LEFT. THE [employer] [employer] RECOMMENDS CONSIDERATION OF FINE-NEEDLE ASPIRATION OF LOW SUSPICION NODULES GREATER THAN OR EQUAL TO 1.5 CM IN SIZE. THE LARGEST ON THE RIGHT APPEARS TO CORRESPOND TO A PREVIOUSLY BIOPSIED NODULE. Based on the [place] [employer] 2015 guidelines, consider fine-needle aspiration thyroid nodule based on the following criteria: * High suspicion nodules: Recommend US-guided FNA if >= 1 cm. * Intermediate suspicion nodules: Recommend US-guided FNA if >= 1 cm. * Low suspicion nodules: Recommend US-guided a if >= 1.5 cm. * Very low suspicion nodules: Consider US-guided FNA if >= to 2 cm. Observation without fine-needle aspiration is also a reasonable option. * Benign nodules: No biopsy is recommended. Aspiration of the cyst may be considered for symptomatic or cosmetic drainage. Ultrasound-guided FNA is recommended for cervical lymph nodes that are sonographically suspicious for thyroid cancer. Alvarado et al (2016) "2015 [place] [employer] Management Guidelines for Adult Patients with Thyroid Nodules and Differentiated Thyroid Cancer", Thyroid, 26:1, 1-133.
[2017-08-20] MEDS: Zolpidem TAB* 10 MG PO SCH (21:09)
[2017-08-21] MEDS: Heparin VIAL(*) 5000 UNITS/ML VIAL (FIVE THOUSAND) SUBCUT SCH ×4 (00:03→22:25)
[2017-08-21] MEDS: NS 0.9% 1000 ML* 1,000 ML IV SCH ×2 (03:39→19:29)
[2017-08-21] MEDS: Morphine INJ* 2 MG/ML 1 ML SYRINGE (TWO MG - NEW SYRINGE VERSION) IV PRN ×2 (03:42→08:58)
[2017-08-21] MEDS: ZOSYN 3.375 GM Q8H per EXTENDED INFUSION IVPB SCH ×6 (06:09→22:31)
[2017-08-21 07:17] LABS: ABS Basophils 0 10^3/ul (0-0.2); ABS Eosinophils 0 10^3/ul (0-0.6); ABS Lymphocytes 0.7 10^3/ul (1.0-4.8); ABS Monocytes 0.5 10^3/ul (0-0.8); ABS Neutrophils 7.3 10^3/ul (1.5-7.7); ABS Nucleated RBC 0 10^3/ul; Eosinophil % 0.4 % (0-6); Hematocrit 30 % (35-47); Hemoglobin 10.1 g/dl (12.0-16.0); Mean Corpuscular HGB Conc 34 g/dl (31-36); Mean Corpuscular Hemoglobin 29 pg (27-31); Mean Corpuscular Volume 85 fL (80-97); Mean Platelet Volume 8 um3 (7.4-10.4); Nucleated Red Blood Cells % 0; Platelet Count 235 10^3/ul (150-450); Red Blood Count 3.51 10^6/ul (4.0-5.4); Red Cell Distribution Width 15 % (10.5-15); White Blood Count 8.6 10^3/ul (3.5-10.8)
[2017-08-21 07:33] LABS: EGFR Non-African American 163.4 (>60)
--- NOTE | 2017-08-21 08:13 | RAD ---
Indication: Pleural effusion. 2 views of the chest are reviewed and compared to previous exam dated August 20, 2017. There appears to be increasing left pleural effusion since thoracentesis. No pneumothorax is noted. Left lower lobe infiltrate and atelectasis is noted. IMPRESSION: Increasing pleural effusion when compared to previous exam after thoracentesis.
[2017-08-21] MEDS: busPIRone TAB* 10 MG PO SCH ×2 (08:58→22:24)
--- NOTE | 2017-08-21 09:59 | PN ---
Progress Note - Progress Note Date of Service: 08/21/17 SOAP: Subjective: []No change. Pain continues through left chest, deep breath hurts, no SOB. Dry cough. Temp to 100. No appetite. Symptoms started end of radiation, mid July. No better after thoracentesis. Acetaminophen (Tylenol Tab*) 650 mg PO Q4H PRN PRN Reason: PAIN/FEVER Last Admin: 08/20/17 00:16 Dose: 650 mg Alprazolam (Xanax Tab*) 0.25 mg PO Q6H PRN PRN Reason: ANXIETY Buspirone HCl (Buspar Tab*) 10 mg PO BID [facility] Last Admin: 08/21/17 08:58 Dose: 10 mg Heparin Sodium (Porcine) (Heparin Vial(*)) 5,000 units SUBCUT Q8HR [facility] Last Admin: 08/21/17 05:46 Dose: 5,000 units Sodium Chloride (Ns 0.9% 1000 Ml*) 1,000 mls @ 75 mls/hr IV PER RATE [facility] Last Admin: 08/21/17 03:39 Dose: 75 mls/hr Piperacillin Sod/Tazobactam (Sod 3.375 gm/ Sodium Chloride) 100 mls @ 25 mls/ hr IVPB Q8H [facility] Last Admin: 08/21/17 06:09 Dose: 25 mls/hr Morphine Sulfate (Morphine Inj (Syringe)*) 2 mg IV Q4H PRN PRN Reason: PAIN Last Admin: 08/21/17 08:58 Dose: 2 mg Pharmacy Consult (Zosyn Per Pharmacy*) 1 note FOLLOW UP .ZOSYN PER PHARMACY [facility] Zolpidem Tartrate (Ambien Tab*) 10 mg PO BEDTIME [facility] Last Admin: 08/20/17 21:09 Dose: 10 mg Objective: [] Vital Signs Temp Pulse Resp BP Pulse Ox 98.0 F 106 18 116/58 94 08/21/17 07:40 08/21/17 07:40 08/21/17 08:58 08/21/17 07:40 08/21/17 07:40 HEENT - no thrush. CTA, decreased sounds right, no wheezing healing XRT skin changes on left Tachy, RRR +BS Ext no edema, good pulses Laboratory Results - last 24 hr 08/19/17 08/20/17 08/21/17 16:53 15:17 06:31 WBC 8.6 RBC 3.51 L Hgb 10.1 L Hct 30 L MCV 85 MCH 29 MCHC 34 RDW 15 Plt Count 235 MPV 8 Neut % (Auto) 85.0 H Lymph % (Auto) 8.0 L [place] % (Auto) 6.2 Eos % (Auto) 0.4 Baso % (Auto) 0.4 Absolute Neuts (auto) 7.3 Absolute Lymphs (auto) 0.7 L Absolute Monos (auto) 0.5 Absolute Eos (auto) 0 Absolute Basos (auto) 0 Absolute Nucleated RBC 0 Nucleated RBC % 0 Sodium Potassium Chloride Carbon Dioxide Anion Gap BUN Creatinine Est GFR ( Amer) Est GFR (Non-Af Amer) BUN/Creatinine Ratio Glucose Calcium Total Bilirubin AST ALT Alkaline Phosphatase Lactate Dehydrogenase C-Reactive Protein Total Protein Albumin Globulin Albumin/Globulin Ratio Free T4 1.44 H Free T3 4.70 H Fluid Volume 5 Fluid Color Yellow Fluid Appearance Cloudy Fluid WBC 293 Fluid RBC 2429 Fluid Tot Cell Count 100 Fluid Neutrophils 64 Fluid Lymphocytes 24 Fluid Monocytes 10 Fluid Eosinophils 2 Fluid Other Cells 25 08/21/17 06:31 WBC RBC Hgb Hct MCV MCH MCHC RDW Plt Count MPV Neut % (Auto) Lymph % (Auto) [place] % (Auto) Eos % (Auto) Baso % (Auto) Absolute Neuts (auto) Absolute Lymphs (auto) Absolute Monos (auto) Absolute Eos (auto) Absolute Basos (auto) Absolute Nucleated RBC Nucleated RBC % Sodium 134 Potassium 3.5 Chloride 102 Carbon Dioxide 24 Anion Gap 8 BUN 7 Creatinine 0.40 L Est GFR ( Amer) 210.1 Est GFR (Non-Af Amer) 163.4 BUN/Creatinine Ratio 17.5 Glucose 108 H Calcium 8.7 Total Bilirubin 0.40 AST 30 ALT 25 Alkaline Phosphatase 131 H Lactate Dehydrogenase 101 L C-Reactive Protein 177.74 H Total Protein 6.1 L Albumin 2.8 L Globulin 3.3 Albumin/Globulin Ratio 0.8 L Free T4 Free T3 Fluid Volume Fluid Color Fluid Appearance Fluid WBC Fluid RBC Fluid Tot Cell Count Fluid Neutrophils Fluid Lymphocytes Fluid Monocytes Fluid Eosinophils Fluid Other Cells Assessment: 61 yo F w triple positive BCA sp chemo and RT who has had c/o left sided pleuritic CP since 07/25. Tx w 10 dy course of abx 07/28-08/07 with some improvement, then steroids 08/09-08/15 with initial marked improvement. now with night sweats, low grade fevers, and worsening fatigue and cough with CT showing worsening pleural effusion. CRP and ESR markedly elevated. Differential includes pneumonia though infiltrate is underwhelming, TB post chemotherapy, radiation pleuritis with or without underlying inflammatory state. Plan: 1. Thyroid studies reviewed with Dr. Gage, suspect chronic mild toxic goiter. - Will check thyroid scan. - If positive methimazole 2. Pleural effusion. I suspect radiation pleurisy. - IV steroids - Continue antibiotics, f/u cultures - Check fluid for AFB 3. Tachycardia from thyroid, inflammation. - Metoprolol
[2017-08-21] MEDS ORDERED: oxyCODONE TAB* 5 MG TAB PO PRN (10:28)
[2017-08-21] MEDS: methylPREDNISolone 125 MG* 2 ML VIAL IV SCH ×2 (10:49→22:31)
[2017-08-21] MEDS: Metoprolol Tartrate TAB* 25 MG PO SCH ×2 (10:50→23:36)
[2017-08-21] MEDS: Zolpidem TAB* 10 MG PO SCH (22:24)
[2017-08-22] MEDS: ZOSYN 3.375 GM Q8H per EXTENDED INFUSION IVPB SCH ×2 (05:21)
[2017-08-22] MEDS: Heparin VIAL(*) 5000 UNITS/ML VIAL (FIVE THOUSAND) SUBCUT SCH (05:24)
[2017-08-22] MEDS ORDERED: Omeprazole CAP* 20 MG PO SCH (07:30)
[2017-08-22 08:00] LABS: ABS Basophils 0 10^3/ul (0-0.2); ABS Eosinophils 0 10^3/ul (0-0.6); ABS Lymphocytes 0.4 10^3/ul (1.0-4.8); ABS Monocytes 0.2 10^3/ul (0-0.8); ABS Nucleated RBC 0 10^3/ul; Eosinophil % 0 % (0-6); Hematocrit 30 % (35-47); Hemoglobin 9.9 g/dl (12.0-16.0); Lymphocyte % 5.9 % (25-47); Mean Corpuscular HGB Conc 33 g/dl (31-36); Mean Corpuscular Hemoglobin 28 pg (27-31); Mean Corpuscular Volume 85 fL (80-97); Mean Platelet Volume 8 um3 (7.4-10.4); Nucleated Red Blood Cells % 0; Platelet Count 253 10^3/ul (150-450); Red Cell Distribution Width 15 % (10.5-15); White Blood Count 6.5 10^3/ul (3.5-10.8)
[2017-08-22 08:07] VITALS: BP 99/53
[2017-08-22] MEDS: busPIRone TAB* 10 MG PO SCH (08:10)
[2017-08-22 08:15] LABS: EGFR Non-African American 184.5 (>60)
[2017-08-22] MEDS: Metoprolol Tartrate TAB* 25 MG PO SCH (08:56)
[2017-08-22] MEDS: methylPREDNISolone 125 MG* 2 ML VIAL IV SCH (10:27)
--- NOTE | 2017-08-22 10:28 | PN ---
Progress Note - Progress Note Date of Service: 08/22/17 SOAP: Subjective: []Feels better, pain is mostly gone. Breathing is ok today, was able to go to bathroom and shower without SOB. No fevers, highest temperature was 100.4 at home. Acetaminophen (Tylenol Tab*) 650 mg PO Q4H PRN PRN Reason: PAIN/FEVER Last Admin: 08/20/17 00:16 Dose: 650 mg Alprazolam (Xanax Tab*) 0.25 mg PO Q6H PRN PRN Reason: ANXIETY Buspirone HCl (Buspar Tab*) 10 mg PO BID [facility] Last Admin: 08/22/17 08:10 Dose: 10 mg Heparin Sodium (Porcine) (Heparin Vial(*)) 5,000 units SUBCUT Q8HR [facility] Last Admin: 08/22/17 05:24 Dose: 5,000 units Sodium Chloride (Ns 0.9% 1000 Ml*) 1,000 mls @ 75 mls/hr IV PER RATE [facility] Last Admin: 08/21/17 19:29 Dose: 75 mls/hr Piperacillin Sod/Tazobactam (Sod 3.375 gm/ Sodium Chloride) 100 mls @ 25 mls/ hr IVPB Q8H [facility] Last Admin: 08/22/17 05:21 Dose: 25 mls/hr Methylprednisolone Sodium Succinate (Solu-Medrol 125mg *) 60 mg IV Q12H [facility] Last Admin: 08/21/17 22:31 Dose: 60 mg Metoprolol Tartrate (Lopressor Tab*) 25 mg PO BID [facility] Last Admin: 08/22/17 08:56 Dose: Not Given Morphine Sulfate (Morphine Inj (Syringe)*) 2 mg IV Q4H PRN PRN Reason: PAIN Last Admin: 08/21/17 08:58 Dose: 2 mg Omeprazole (Prilosec Cap*) 20 mg PO DAILY@0730 [facility] Last Admin: 08/22/17 08:10 Dose: 20 mg Oxycodone HCl (Roxycodone Tab*) 10 mg PO Q4H PRN PRN Reason: PAIN Last Admin: 08/21/17 10:50 Dose: 10 mg Pharmacy Consult (Zosyn Per Pharmacy*) 1 note FOLLOW UP .ZOSYN PER PHARMACY [facility] Zolpidem Tartrate (Ambien Tab*) 10 mg PO BEDTIME [facility] Last Admin: 08/21/17 22:24 Dose: 10 mg Objective: []Vital Signs Temp Pulse Resp BP Pulse Ox 97.4 F 68 17 99/53 90 08/22/17 07:19 08/22/17 07:19 08/22/17 08:00 08/22/17 07:19 08/22/17 07:19 HEENT - no thrush. CTA, decreased sounds right, no wheezing healing XRT skin changes on left Tachy, RRR +BS Ext no edema, good pulses Pleural fluid - + neutrophils, quesion of +1 GPC, culture day 1 negative. MRSA negative Assessment: 61 yo F w triple positive BCA sp chemo and RT who has had c/o left sided pleuritic CP since 07/25. Tx w 10 dy course of abx 07/28-08/07 with some improvement, then steroids 08/09-08/15 with initial marked improvement. now with night sweats, low grade fevers, and worsening fatigue and cough with CT showing worsening pleural effusion. CRP and ESR markedly elevated. There are polys in fluid, qusion of +1 GPC but cuture negative. Differential includes pneumonia though infiltrate is underwhelming, TB post chemotherapy, radiation pleuritis with or without underlying inflammatory state. She is on steriods and antibiotics and stable to improved today. Discussed staying in hospital or going home on antibiotics with close follow up. Plan: 1. Thyroid studies reviewed with Dr. Gage, suspect chronic mild toxic goiter. - Will check thyroid scan, can be inpatient or out patient. - If positive methimazole 2. Pleural effusion. I suspect radiation pleurisy but could be infection. - Discharge on antibiotics and steroids. Augment 875 bid and Predinsone 40 mg per day. - Check fluid for AFB 3. Tachycardia from thyroid, inflammation. - Metoprolol XL 50 mg on discharge 4. Follow up Thursday am, call over weekend for any difficulty.
--- NOTE | 2017-08-22 17:30 | DS ---
CC: Dr. Aviles DISCHARGE SUMMARY: DATE OF ADMISSION: 08/19/17 DATE OF DISCHARGE: 08/22/2017 DISCHARGE DIAGNOSES: 1. Pleuritis 2. Shortness of breath. 3. Pneumonia 4. History of breast cancer and radiation therapy. HOSPITAL COURSE: Please see history and physical from 08/19/17 for details of presentation. She had had chest pain starting back from 07/25/17, this is towards the end of her radiation therapy. At that time, she had a CTA and workup for myocardial infarction that was negative and treated with Percocet. There is a question of atelectasis and pneumonia and she was also given a 10- day prescription for Levaquin. Symptoms improved somewhat, but then increased again at the [place] holiday. She described marked sharp pain with inspiration and shortness of breath. Dr. Aviles felt this was pleurisy and she was given a short course of steroids. This helped, and by 08/12/17, she was feeling better. She then developed increasing chest pain and fatigue several days prior to admission. She had a temperature of 100.4 and that finally triggered coming to the emergency room. On presentation, she had a left chest CT scan that showed moderate left pleural effusion and some atelectasis and that was new compared to 07/25/17. She had a thoracentesis with 500 cc removed. There was +4 neutrophils and a question of + 1 gram-positive cocci. Subsequent cultures on day 1 had been negative. Cytology was negative. I sent it for an AFB and that is pending. She was started on Zosyn on admission. Because she had strong pleuritic component to her symptoms, she was placed on some Solu-Medrol yesterday. Today, the pain is significantly better. She is able to walk around, go to the shower without difficulty. Still with the shortness of breath, but close to the baseline. She continues to feel very drained and tired. She has had no additional fevers since coming into the hospital. We discussed continuing to watch her in the hospital or sending her home with steroids and antibiotics. We opted for the latter, but with close followup. Other issues during this hospitalization were mildly increased thyroid studies and case was reviewed with Dr. Gage. We will check a thyroid scan either inpatient or outpatient and if she has a toxic goiter, consider metronidazole. It is thought this was most likely to be either chronic toxicosis or transient thyroid changes associated with inflammation to infection. Dr. Gage did not feel that the thyroid issues were driving her course. She was tachycardiac earlier in the admission and she was placed on metoprolol and tachycardia improved, also her pain improved at the same time, so I am not sure which was driving the fast heart rate. MEDICATIONS ON DISCHARGE: 1. Augmentin 875 mg p.o. b.i.d. 2. Prednisone 40 mg p.o. daily. 3. Xanax 0.25 mg q.8 p.r.n. 4. BuSpar 10 mg p.o. b.i.d. 5. Ambien 10 mg at bedtime. DISCHARGE INSTRUCTIONS: She will follow up with me on Thursday morning at 8:30 a.m. and we will see how she is doing. Also, followup cultures at that time. She is going to call me over the weekend with any additional issues. [id number]/CPS #: [id number] VARINDER
== END 2017-08-22 12:10 | disposition home or self-care (01) | DRG 198 ==
LOC: MEDTELE 16:09
PROVIDERS: ADMIT Internal Medicine Hematology & Oncology; ATTEND Internal Medicine Hematology & Oncology
PROC: 0W9B3ZX Drainage of Left Pleural Cavity, Percutaneous Approach, Diagnostic (ICD-10-PCS; principal; 2017-08-20)
DX: J70.1 Chronic and other pulmonary manifestations due to radiation (principal); C50.919 Malignant neoplasm of unspecified site of unspecified female breast; R00.0 Tachycardia, unspecified; R09.1 Pleurisy; F32.89 Other specified depressive episodes; E05.00 Thyrotoxicosis with diffuse goiter without thyrotoxic crisis or storm; Z79.899 Other long term (current) drug therapy; Z80.3 Family history of malignant neoplasm of breast
CPT/HCPCS: 32555; 36415; 71046; 71250; 76536; 80053; 81003; 81015; 82945; 83605; 83615; 84145; 84157; 84436; 84439; 84443; 84445; 84479; 84481; 84484; 85025; 85610; 85652; 86038; 86140; 86431; 86618; 87040; 87070; 87077; 87086; 87116; 87186; 87205; 87206; 87640; 87641; 87899; 88112; 88305; 88312; 89051; 93005; 99215; 99223; 99233; A9270-GY; G0463; J1644; J2270; J2543; J2930; J3010

== ENCOUNTER 2021-02-26 17:39 | Observation (INO) ==
[2021-02-26 19:04] LABS: ABS Basophils 0.1 10^3/ul (0-0.2); ABS Lymphocytes 1.7 10^3/ul (1.0-4.8); ABS Monocytes 0.5 10^3/ul (0-0.8); ABS Neutrophils 6.3 10^3/ul (1.5-7.7); Eosinophil % 0.3 %; Hematocrit 40 % (35-47); Hemoglobin 13.6 g/dL (12.0-16.0); Lymphocyte % 19.5 %; Mean Corpuscular HGB Conc 34 g/dL (31-36); Mean Corpuscular Hemoglobin 31 pg (27-31); Mean Corpuscular Volume 89 fL (80-97); Mean Platelet Volume 8.5 fL (7.4-10.4); Platelet Count 205 10^3/uL (150-450); Red Blood Count 4.47 10^6 /uL (3.70-4.87); Red Cell Distribution Width 12 % (10-15); White Blood Count 8.6 10^3/uL (3.5-10.8)
[2021-02-26 19:17] LABS: Troponin I 0.01 ng/mL (<0.03)
[2021-02-26 19:32] LABS: Albumin 4.3 g/dL (3.2-5.2); Albumin/Globulin Ratio 1.5 (1-3); Calcium 9.5 mg/dL (8.6-10.3); Globulin 2.8 g/dL (2-4); Potassium 3.8 mmol/L (3.5-5.0); Total Bilirubin 0.4 mg/dL (0.2-1.0); Total Protein 7.1 g/dL (6.4-8.9)
[2021-02-26 19:34] LABS: INR 1.02 (0.86-1.15)
[2021-02-26] MEDS ORDERED: Ondansetron 4 mg VIAL 2 MG/ML 2 ml VIAL IV PRN (20:19)
[2021-02-26] MEDS ORDERED: NS 0.9% 1000 ml BAG 1,000 ML IV SCH (20:30)
[2021-02-26] MEDS ORDERED: Enoxaparin 40 MG/0.4 ML SYR SUBCUT SCH (21:00)
[2021-02-27 06:12] LABS: ABS Basophils 0.1 10^3/ul (0-0.2); ABS Eosinophils 0.1 10^3/ul (0-0.6); ABS Lymphocytes 2.3 10^3/ul (1.0-4.8); ABS Monocytes 0.4 10^3/ul (0-0.8); ABS Neutrophils 3.3 10^3/ul (1.5-7.7); Eosinophil % 1.3 %; Hematocrit 39 % (35-47); Hemoglobin 13.5 g/dL (12.0-16.0); Lymphocyte % 37.8 %; Mean Corpuscular HGB Conc 34 g/dL (31-36); Mean Corpuscular Hemoglobin 30 pg (27-31); Mean Corpuscular Volume 88 fL (80-97); Mean Platelet Volume 7.8 fL (7.4-10.4); Nucleated Red Blood Cells % 0.1; Platelet Count 197 10^3/uL (150-450); Red Blood Count 4.49 10^6 /uL (3.70-4.87); Red Cell Distribution Width 12 % (10-15); White Blood Count 6.1 10^3/uL (3.5-10.8)
[2021-02-27 06:22] LABS: INR 1.08 (0.86-1.15)
[2021-02-27 06:34] LABS: Calcium 9.3 mg/dL (8.6-10.3); HDL Cholesterol 59.2 mg/dL; Potassium 3.8 mmol/L (3.5-5.0)
[2021-02-27] MEDS ORDERED: Aspirin EC 81 mg TAB.EC (enteric coated) PO SCH (09:00)
[2021-02-27] MEDS ORDERED: CMCS: Anastrozole 1 mg TAB (NF) PO SCH (09:00)
[2021-02-27 13:25] VITALS: BP 132/71
== END 2021-02-27 14:16 | disposition home or self-care (01) ==
LOC: ED 17:39 → MEDTELE 17:39
PROVIDERS: ADMIT Internal Medicine; ATTEND Internal Medicine